=== PATIENT | male | born 1935 | race Caucasian/White ===

== ENCOUNTER → 2020-01-24 20:30 | Outpatient (ROUT) | payer SELFPAY ==
[2020-01-24 20:39] LABS: Appearance Urine UA CLOUDY; Bilirubin Urine UA NEGATIVE (NEGATIVE); Color Urine UA YELLOW; Glucose Urine UA NEGATIVE (Negative); Ketones Urine UA NEGATIVE (NEGATIVE); Leukocyte Esterase Urine UA TRACE (NEGATIVE); Nitrite Urine UA NEGATIVE (Negative); Occult Blood Urine UA 1+ (Negative); Protein Urine UA TRACE (Negative); Specific Gravity Urine UA 1.025 (1.000-1.035); pH Urine UA 6.5 (4.5-8.0)
[2020-01-24 20:50] LABS: Bacteria Urine Many (>30); Culture Indicated Urine Specimen Cultured; RBC Urine 0-1/HPF (0-5/HPF); Squamous Epithelial Cell Urine 0-1 /HPF (0-5/HPF); WBC Urine 10-30/HPF (0-5/HPF)
== END ==
PROVIDERS: Visit Provider Internal Medicine
DX: R82.90 Unspecified abnormal findings in urine (principal)
CPT/HCPCS: 81001; 87077; 87086; 87186

== ENCOUNTER → 2020-03-09 15:43 | Outpatient (ROUT) | payer MEDICARE, OTHER, SELFPAY ==
[2020-03-09 16:07] LABS: Appearance Urine UA CLOUDY; Bilirubin Urine UA NEGATIVE (NEGATIVE); Color Urine UA ORANGE; Glucose Urine UA NEGATIVE (Negative); Ketones Urine UA NEGATIVE (NEGATIVE); Leukocyte Esterase Urine UA 3+ (NEGATIVE); Nitrite Urine UA POSITIVE (Negative); Occult Blood Urine UA 3+ (Negative); Protein Urine UA 2+ (Negative); Urobilinogen Urine UA 0.2 E.U./dL (0.2); pH Urine UA 6.5 (4.5-8.0)
[2020-03-09 16:18] LABS: Bacteria Urine Many (>30); RBC Urine 30-100/HPF (0-5/HPF); WBC Urine 30-100/HPF (0-5/HPF)
== END ==
PROVIDERS: Visit Provider Nurse Practitioner
DX: R33.9 Retention of urine, unspecified (principal)
CPT/HCPCS: 81001; 87077; 87086; 87186

== ENCOUNTER → 2020-03-17 12:28 | Outpatient (ROUT) | payer MEDICARE, OTHER, SELFPAY ==
[2020-03-17 13:36] LABS: Gentamicin Trough 1.4 ug/mL (0.0-2.0)
== END ==
PROVIDERS: Visit Provider Hospitalist
DX: Z51.81 Encounter for therapeutic drug level monitoring (principal)
CPT/HCPCS: 80170

== ENCOUNTER → 2020-03-24 20:05 | Outpatient (ROUT) | payer MEDICARE, OTHER, SELFPAY ==
[2020-03-24 20:36] LABS: BUN Creatinine Ratio 24.2 (6-22); Blood Urea Nitrogen 16 mg/dL (9-20); Calcium 7.8 mg/dL (8.4-10.2); Carbon Dioxide 29 mmol/L (22-32); Chloride 96 mmol/L (98-107); Estimated Glomerular Filt Rate > 60.0 mL/min (>60); Glucose 116 mg/dL (80-110); HEMOLYSIS < 15 (0-50); Potassium 4.3 mmol/L (3.4-5.1); Sodium 127 mmol/L (137-145)
== END ==
PROVIDERS: Visit Provider Hospitalist
DX: N39.0 Urinary tract infection, site not specified (principal)
CPT/HCPCS: 80048; 80170

== ENCOUNTER → 2020-04-01 20:41 | Outpatient (ROUT) | payer MEDICARE, OTHER, SELFPAY | PROVIDERS: Nurse Practitioner; Visit Provider Hospitalist | DX: Z79.2 Long term (current) use of antibiotics (principal) | CPT/HCPCS: 80170 ==

== ENCOUNTER → 2020-04-06 20:07 | Outpatient (ROUT) | payer MEDICARE, OTHER, SELFPAY ==
[2020-04-06 20:23] LABS: Gentamicin Trough 1.2 ug/mL (0.0-2.0)
== END ==
PROVIDERS: Visit Provider Hospitalist
DX: Z79.899 Other long term (current) drug therapy (principal); Z79.2 Long term (current) use of antibiotics
CPT/HCPCS: 80170

== ENCOUNTER → 2020-09-22 13:17 | Outpatient (ROUT) | payer MEDICARE, OTHER, SELFPAY ==
[2020-09-22 13:36] LABS: Appearance Urine UA CLOUDY; Bilirubin Urine UA NEGATIVE (NEGATIVE); Color Urine UA YELLOW; Glucose Urine UA NEGATIVE (Negative); Ketones Urine UA NEGATIVE (NEGATIVE); Leukocyte Esterase Urine UA 2+ (NEGATIVE); Nitrite Urine UA NEGATIVE (Negative); Occult Blood Urine UA 2+ (Negative); Protein Urine UA 1+ (Negative); Specific Gravity Urine UA 1.015 (1.000-1.035); Urobilinogen Urine UA 0.2 E.U./dL (0.2); pH Urine UA 8.5 (4.5-8.0)
[2020-09-22 13:43] LABS: Amorphous Sediment Urine 2+; Bacteria Urine Many (>30); RBC Urine 1-5/HPF (0-5/HPF); WBC Urine 5-10/HPF (0-5/HPF)
--- NOTE | 2020-10-30 09:06 | PC.NURSE ---
XTANDI: NEW RX FOR XTANDI IN SAME DOSAGE AND FREQUENCY WRITTEN BY DR KWON AND FAXED TO [facility] AT [phone].
== END ==
PROVIDERS: PCP Nurse Practitioner Gerontology; Visit Provider Nurse Practitioner Gerontology
DX: N39.0 Urinary tract infection, site not specified (principal)
CPT/HCPCS: 81001; 87077; 87086; 87186